=== PATIENT | female | born 1940 | race Caucasian/White ===

== ENCOUNTER 2017-02-06 15:43 | Inpatient (IN) | payer OTHER ==
[~2017-02-06] VITALS: Ht 152.4 cm; Wt 60.2 kg
[2017-02-06] MEDS ORDERED: NITROGLYCERIN 2% 1 GM OINT PKT TD STA (17:04)
[2017-02-06] MEDS ORDERED: ASPIRIN 81 MG TAB PO STA (17:04)
[2017-02-06] MEDS ORDERED: FUROSEMIDE 40 MG INJ IV STA (17:04)
[2017-02-06 17:20] LABS: WHITE BLOOD COUNT 8.1 10^3/ul (4.8-10.8)
[2017-02-06 17:21] LABS: BASOPHIL # 0.1 10^3/ul (0.0-0.1); BASOPHILS % 0.7 % (0.0-2.0); EOSINOPHILS # 0.3 10^3/ul (0.0-0.5); EOSINOPHILS % 3.3 % (0.0-7.0); HEMATOCRIT 39.5 % (37.0-47.0); HEMOGLOBIN 13.4 g/dl (12.0-16.0); LYMPHOCYTES # 3.7 10^3/ul (0.8-2.9); LYMPHOCYTES % 45.6 % (15.0-51.0); MEAN CORPUSCULAR HEMOGLOBIN 32.1 pg (29.0-33.0); MEAN CORPUSCULAR HGB CONC 33.9 g/dl (32.0-37.0); MEAN CORPUSCULAR VOLUME 94.5 fl (82.0-101.0); MEAN PLATELET VOLUME 9.9 fl (7.4-10.4); MONOCYTE # 0.6 10^3/ul (0.3-0.9); MONOCYTES % 7.7 % (0.0-11.0); NEUTROPHIL # 3.4 10^3/ul (1.6-7.5); NEUTROPHILS % 42.5 % (39.0-77.0); PLATELET COUNT 221 10^3/UL (140-415); RED BLOOD COUNT 4.18 10^6/ul (4.20-5.40); RED CELL DISTRIBUTION WIDTH 11.9 % (11.5-14.5)
[2017-02-06] MEDS ORDERED: NITROGLYCERIN (SL) 0.4 MG TAB SL PRN (17:30)
[2017-02-06 17:37] LABS: INR 0.95; PROTIME 12.7 Sec (12.2-14.2)
[2017-02-06 17:38] LABS: PARTIAL THROMBOPLASTIN TIME 27.5 Sec (25.0-35.0)
[2017-02-06 17:40] LABS: ANION GAP 17 (8-16); BLOOD UREA NITROGEN 24 mg/dl (7-20); CALCIUM 9.9 mg/dl (8.4-10.2); CARBON DIOXIDE 30 mmol/L (21-31); CHLORIDE 100 mmol/L (97-110); CREATININE 0.88 mg/dl (0.44-1.00); GLUCOSE 105 mg/dl (70-220); POTASSIUM 4.2 mmol/L (3.5-5.1); SODIUM 143 mmol/L (135-144)
[2017-02-06 17:51] LABS: TROPONIN-I < 0.012 ng/ml (0.00-0.12)
[2017-02-06] MEDS ORDERED: LISI30TA47 PO (18:09)
--- NOTE | 2017-02-06 18:09 | RADRPT ---
PROCEDURE: XR Chest. CLINICAL INDICATION: Chest pain. TECHNIQUE: Single frontal view. COMPARISON: None. FINDINGS: There is mild diffuse bilateral interstitial disease which may indicate pulmonary edema. The lungs are otherwise clear. The heart is enlarged. There is calcification in the aorta consistent with atherosclerosis. There is no pleural effusion. There is no pneumothorax. IMPRESSION: 1. Mild pulmonary edema. 2. Cardiomegaly and atherosclerosis. RPTAT: QQ .Benjamin Gregorio MD, MD Date Time Electronically viewed and signed by .Benjamin Gregorio MD, MD on 02/06/2017 18:09 .R/
[2017-02-06] MEDS ORDERED: FURO20TA3 PO (18:10)
[2017-02-06] MEDS ORDERED: LEVO25TA53 PO (18:10)
[2017-02-06] MEDS ORDERED: ASPI-664 PO (18:11)
[2017-02-06] MEDS ORDERED: ATEN50TA PO (18:11)
[2017-02-06] MEDS ORDERED: ONDANSETRON 4 MG INJ IV PRN (18:30)
[2017-02-06] MEDS ORDERED: ACETAMINOPHEN 325 MG TAB PO PRN ×2 (18:30→20:00)
--- NOTE | 2017-02-06 19:09 | ERA ---
ER Documentation Chief Complaint Date/Time DATE: 02/06/17 TIME: 19:08 Chief Complaint COUGH , SOB X 2 WEEKS , ABLE TO TALK IN FULL SENTENCES HPI Patient is a 77-year-old female with hypertension presents with shortness of breath. The patient feels tired. The patient has shortness of breath with minimal exertion. The patient has shortness of breath even with lifting her arms above her head. This is been getting worse over the past 3 weeks. The patient denies chest pain although she did have chest pain before within the last few weeks. She has swelling to her eyes bilaterally. Her doctor prescribed Lasix 40 mg daily and she has been taking for the past 2 weeks but not getting better. Upon review of old medical records this is the patient's first visit to the emergency department. ROS All systems reviewed and are negative except as per history of present illness. Medications Home Meds Reported Medications Aspirin* (Aspirin* EC) 81 Mg Tablet.dr, 81 MG PO DAILY, TAB 02/06/17 Atenolol* (Atenolol*) 50 Mg Tablet, 50 MG PO DAILY, #30 TAB 02/06/17 Levothyroxine Sodium* (Levothyroxine Sodium*) 25 Mcg Tablet, 25 MCG PO BEFORE BREAKFAST, #30 TAB 02/06/17 Furosemide* (Furosemide*) 20 Mg Tablet, 40 MG PO DAILY, #60 TAB 02/06/17 Lisinopril* (Lisinopril*) 30 Mg Tablet, 30 MG PO DAILY, #30 TAB 02/06/17 Allergies Allergies: Coded Allergies: No Known Allergy (Unverified , 02/06/17) PMhx/Soc History of Surgery: Yes (GALL BLADDER) Anesthesia Reaction: No Hx Neurological Disorder: No Hx Respiratory Disorders: No Hx Cardiac Disorders: Yes (HTN) Hx Psychiatric Problems: No Hx Miscellaneous Medical Probl: No Hx Alcohol Use: No Hx Substance Use: No Hx Tobacco Use: No Smoking Status: Never smoker FmHx Family History: No coronary disease Physical Exam Vitals Vital Signs Date Time Temp Pulse Resp B/P Pulse Ox O2 Delivery O2 Flow Rate FiO2 02/06/17 18:30 97.6 60 18 150/79 100 Nasal Cannula 2.0 02/06/17 17:00 Nasal Cannula 2.0 02/06/17 17:00 97.6 60 18 141/78 100 Nasal Cannula 2.0 02/06/17 17:00 Nasal Cannula 2 02/06/17 15:48 67.0 67 18 140/71 97 Physical Exam Const: Moderate distress secondary to shortness of breath Head: Atraumatic Eyes: Normal Conjunctiva ENT: Normal External Ears, Nose and Mouth. Neck: Full range of motion..~ No meningismus. Resp: Crackles in the bases bilaterally Cardio: Regular rate and rhythm, no murmurs Abd: Soft, non tender, non distended. Normal bowel sounds Skin: No petechiae or rashes Back: No midline or flank tenderness Ext: No cyanosis, or edema Neur: Awake and alert Psych: Normal Mood and Affect Result Diagram: 02/06/17 1700 02/06/17 1700 Results 24 hrs Laboratory Tests Test 02/06/17 17:00 White Blood Count 8.110^3/ul Red Blood Count 4.1810^6/ul Hemoglobin 13.4g/dl Hematocrit 39.5% Mean Corpuscular Volume 94.5fl Mean Corpuscular Hemoglobin 32.1pg Mean Corpuscular Hemoglobin Concent 33.9g/dl Red Cell Distribution Width 11.9% Platelet Count 39796^3/UL Mean Platelet Volume 9.9fl Neutrophils % 42.5% Lymphocytes % 45.6% Monocytes % 7.7% Eosinophils % 3.3% Basophils % 0.7% Nucleated Red Blood Cells % 0.0/100WBC Neutrophils # 3.410^3/ul Lymphocytes # 3.710^3/ul Monocytes # 0.610^3/ul Eosinophils # 0.310^3/ul Basophils # 0.110^3/ul Nucleated Red Blood Cells # 0.010^3/ul Prothrombin Time 12.7Sec Prothrombin Time Ratio 1.0 INR International Normalized Ratio 0.95 Activated Partial Thromboplast Time 27.5Sec Sodium Level 143mmol/L Potassium Level 4.2mmol/L Chloride Level 100mmol/L Carbon Dioxide Level 30mmol/L Anion Gap 17 Blood Urea Nitrogen 24mg/dl Creatinine 0.88mg/dl Glucose Level 105mg/dl Calcium Level 9.9mg/dl Troponin I < 0.012ng/ml Current Medications Medications (Trade) Dose Ordered Sig/[place] Route PRN Reason Start Time Stop Time Status Last Admin Dose Admin Aspirin (Aspirin) 162 mg ONCE STAT PO 02/06/17 17:04 02/06/17 17:18 DC 02/06/17 17:56 Nitroglycerin (Nitroglycerin 2% Oint) 1 inch ONCE STAT TD 02/06/17 17:04 02/06/17 17:18 DC 02/06/17 17:56 Nitroglycerin (Nitroglycerin (Sl Tab) 0.4 Mg) 1 tab Q5M UP TO 3 DOSES PRN SL CHEST PAIN 02/06/17 17:30 02/06/17 17:56 Furosemide (Lasix) 40 mg ONCE STAT IV 02/06/17 17:04 02/06/17 17:18 DC 02/06/17 17:55 Ondansetron HCl (Zofran Inj) 4 mg ER BRIDGE PRN IV NAUSEA AND/OR VOMITING 02/06/17 18:30 02/07/17 18:29 Acetaminophen (Tylenol Tab) 650 mg ER BRIDGE PRN PO MILD PAIN/FEVER 02/06/17 18:30 02/07/17 18:29 Procedures/MDM EKG read by me: Rate/Rhythm: Regular rate and rhythm at a normal rate Intervals: Normal Impression: No evidence of ischemia or arrhythmia Chest x-ray shows pulmonary edema per radiology. Patient is a 77-year-old female with hypertension who presents with what appears to be new onset and acute CHF exacerbation. The patient has been short of breath with minimal exertion. She has crackles in the bases and an x-ray shows pulmonary edema. The patient was given aspirin, nitroglycerin, and Lasix. The patient will be admitted to the care of Dr. Berry from the panel team for admission. Departure Diagnosis: Primary Impression: Acute exacerbation of CHF (congestive heart failure) Qualified Code: I50.9 - Acute on chronic congestive heart failure, unspecified congestive heart failure type Additional Impression: Shortness of breath Condition: PARMJIT Caldwell MD Feb 06, 2017 19:09
[2017-02-06] MEDS ORDERED: BISACODYL (EC) 5 MG TAB PO PRN (20:00)
[2017-02-06] MEDS ORDERED: DOCUSATE SODIUM 100 MG CAP PO PRN (20:00)
[2017-02-06] MEDS ORDERED: ONDANSETRON 4 MG TAB PO PRN (20:00)
[2017-02-06] MEDS ORDERED: MAGNESIUM HYDROXIDE 30ML CUP PO PRN (20:00)
[2017-02-06] MEDS ORDERED: NACL 0.9% 3 ML SYG IV SCH (20:00)
[2017-02-06] MEDS ORDERED: HYDROCODONE/APAP (5/325) TAB PO PRN (20:00)
[2017-02-06 20:27] VITALS: TEMP 97.6
[2017-02-06 20:58] VITALS: PULSE 57
[2017-02-06 21:09] VITALS: Ht 152.4 cm; Wt 60.2 kg
[2017-02-06 21:15] VITALS: BP 198/96; RESP 18
--- NOTE | 2017-02-06 22:00 | HP ---
Date/Time of Note Date/Time of Note DATE: 02/06/17 TIME: 21:59 Assessment/Plan VTE Prophylaxis VTE Prophylaxis Intervention: SCD's Assessment/Plan Chief Complaint/Hosp Course This is a 77-year-old female being admitted to the telemetry floor for: #1 shortness of breath: possible New onset CHF versus respiratory etiology. Patient denies any previous respiratory history. She has a history of hypertension that is not well controlled all the time according to her daughter is also could be secondary to possibly poorly controlled thyroid function. Will check a TSH level. X-ray does show evidence of pulmonary congestion, her BNP though is not that impressive at a level of 169. First set of troponins are negative. Will continue to trend troponins. Will obtain a 2D echocardiogram. Will provide IV Lasix diuresis right now at this time. #2 uncontrolled hypertension: We will resume home medications and add additional medications as indicated to optimize management. #3 hypothyroidism: We will check a TSH and adjust medication dosage as necessary. #4 DVT and GI prophylaxis: SCDs, Protonix Further treatment strategy will be implemented as per the clinical course Problems: HPI/ROS Admit Date/Time Admit Date/Time Feb 06, 2017 at 18:04 Hx of Present Illness Chief complaint: Shortness of breath 3 weeks This is a 77-year-old female with hypertension presents with shortness of breath 3 week. The patient has shortness of breath with minimal exertion. The patient has shortness of breath even with lifting her arms above her head. This is been getting worse over the past 3 weeks. She currently denies any chest pain though she does state that over the last few weeks she did experience it.. She has swelling to her eyes bilaterally. Her doctor prescribed Lasix 40 mg daily and she has been taking for the past 2 weeks but not getting better. Patient also reports shortness of breath while lying down. allergies: nkda meds: see sep ROS Const: As per HPI Eyes : No pain discharge or redness or change in visual acuity ENT: No pain, sore throat, congestion, congestion, dysphagia or discharge Respiratory: As per HPI Cardiovascular: As per HPI GI : no change in appetite, abdominal pain, nausea, vomiting, diarrhea, constipation, or change in the color his stool Genitourinary: No dysuria, hematuria, flank pain , discharge or CVA tenderness Musculoskeletal: No joint pain, back pain, neck pain, restricted range of motion in neck or joints Skin: No rash, bruising or hives Neuro: No headache, dizziness, syncope, seizure, focal weakness Endocrine: No polyuria, polydipsia, temperature intolerance Psych: No hallucination, depression, anxiety or suicidal ideation PMH/Family/Social Past Medical History Hypertension, hypothyroidism Past Surgical History Past Surgical Hx: cholecystectomy Family History Significant Family History: cancer (Mom stomach cancer) Social History Alcohol Use: none Smoking Status: Never smoker Drug Use: none Exam/Review of Systems Vital Signs Vitals Vital Signs Date Time Temp Pulse Resp B/P Pulse Ox O2 Delivery O2 Flow Rate FiO2 02/06/17 21:15 98.0 118 18 198/96 96 02/06/17 20:27 Nasal Cannula 2.0 Exam Exam General: Patient is a well-developed female lying in bed in no acute distress. HEENT: Atraumatic, normocephalic. The pupils are equal, round and reactive. Extraocular motor are intact, nasal cannula in place Neck: Supple with full range of motion. No rigidity or meningismus Chest: Nontender Lungs: Bilateral crackles noted diffusely, no wheezing Heart: Normal S1-S2, Regular rhythm and rate. No overt murmurs appreciated Abdomen: Soft , nontender, nondistended , bowel sounds are present. No guarding no rebound tenderness , No masses or organomegaly. No costovertebral temporal angle mass Extremities: Trace edema of the lower extremities bilaterally. Neurologic: Normal mental status, speech normal, cranial nerves II through XII are intact, motor and sensory are intact, no focal weakness Additional Comments PROCEDURE: XR Chest. CLINICAL INDICATION: Chest pain. TECHNIQUE: Single frontal view. COMPARISON: None. FINDINGS: There is mild diffuse bilateral interstitial disease which may indicate pulmonary edema. The lungs are otherwise clear. The heart is enlarged. There is calcification in the aorta consistent with atherosclerosis. There is no pleural effusion. There is no pneumothorax. IMPRESSION: 1. Mild pulmonary edema. 2. Cardiomegaly and atherosclerosis. RPTAT: QQ .Benjamin Gregorio MD, MD Date Time Electronically viewed and signed by .Benjamin Gregorio MD, MD on 02/06/2017 18:09 .R/ EKG Rate/Rhythm: Regular rate and rhythm at a normal rate Intervals: Normal Impression: No evidence of ischemia or arrhythmia As per ED physician documentation Labs Result Diagram: 02/06/17 1700 02/06/17 1700 Medications Medications Current Medications Ondansetron HCl (Zofran Tab) 4 mg Q6H PRN PO NAUSEA AND/OR VOMITING; Start at 20:00 Acetaminophen (Tylenol Tab) 650 mg Q6H PRN PO PAIN LEVEL 1-3 OR FEVER; Start at 20:00 Acetaminophen/ Hydrocodone Bitart ([place] (5/325)) 1 tab Q6H PRN PO MODERATE PAIN LEVEL 4-6; Start 02/06/17 at 20:00 Docusate Sodium (Colace) 100 mg Q12H PRN PO CONSTIPATION; Start 02/06/17 at 20: 00 Magnesium Hydroxide (Milk Of Mag) 30 ml DAILY PRN PO CONSTIPATION; Start at 20:00 Bisacodyl (Dulcolax) 5 mg DAILY PRN PO CONSTIPATION; Start 02/06/17 at 20:00 Enoxaparin Sodium (Lovenox) 40 mg DAILY SC ; Start 02/07/17 at 09:00 MAYELA OROZCO Feb 06, 2017 22:00
[2017-02-06] MEDS ORDERED: LABETALOL HCL 20MG INJ IV ONE (22:30)
[2017-02-06 22:35] VITALS: BP 167/77; PULSE 59
[2017-02-06 23:15] LABS: CREATINE KINASE 69 IU/L (23-200)
[2017-02-06 23:39] LABS: CK-MB < 0.22 ng/ml (0.0-2.4)
[2017-02-07] VITALS (12 sets, daily range): BP systolic 118–136; BP diastolic 58–65; PULSE 55–67; RESP 16–18
[2017-02-07 00:10] LABS: TROPONIN-I < 0.012 ng/ml (0.00-0.12)
[2017-02-07] MEDS: LEVOTHYROXINE 25 MCG TAB PO SCH (06:23)
[2017-02-07 07:17] LABS: BASOPHILS % 0.5 % (0.0-2.0); EOSINOPHILS # 0.4 10^3/ul (0.0-0.5); EOSINOPHILS % 4.5 % (0.0-7.0); HEMATOCRIT 38.8 % (37.0-47.0); HEMOGLOBIN 12.8 g/dl (12.0-16.0); LYMPHOCYTES # 3.6 10^3/ul (0.8-2.9); LYMPHOCYTES % 46.4 % (15.0-51.0); MEAN CORPUSCULAR HEMOGLOBIN 31.1 pg (29.0-33.0); MEAN CORPUSCULAR VOLUME 94.4 fl (82.0-101.0); MEAN PLATELET VOLUME 10.3 fl (7.4-10.4); MONOCYTE # 0.5 10^3/ul (0.3-0.9); NEUTROPHIL # 3.2 10^3/ul (1.6-7.5); NEUTROPHILS % 41.1 % (39.0-77.0); PLATELET COUNT 214 10^3/UL (140-415); RED BLOOD COUNT 4.11 10^6/ul (4.20-5.40); WHITE BLOOD COUNT 7.7 10^3/ul (4.8-10.8)
[2017-02-07 08:24] LABS: CK-MB < 0.22 ng/ml (0.0-2.4)
[2017-02-07] MEDS ORDERED: ALBUTEROL/IPRATROPIUM (NEB) 3 ML AMP HHN PRN (08:30)
[2017-02-07 08:39] LABS: CREATINE KINASE 39 IU/L (23-200); TROPONIN-I < 0.012 ng/ml (0.00-0.12)
[2017-02-07] MEDS ORDERED: ENOXAPARIN 40 MG/0.4 ML SYG SC SCH (09:00)
[2017-02-07 09:04] LABS: CHOL/HDL RATIO 5.8 RATIO
[2017-02-07 09:11] LABS: ALBUMIN/GLOBULIN RATIO 1.14; BILIRUBIN,INDIRECT 0.3 mg/dl (0-1.1); BILIRUBIN,TOTAL 0.3 mg/dl (0.2-1.3); CALCIUM 9.5 mg/dl (8.4-10.2); CREATININE 0.86 mg/dl (0.44-1.00); POTASSIUM 4.6 mmol/L (3.5-5.1); TOTAL PROTEIN 7.5 g/dl (6.1-8.1)
[2017-02-07] MEDS: ASPIRIN (EC) 81 MG TAB PO SCH (09:13)
[2017-02-07] MEDS: LISINOPRIL 10 MG TAB PO SCH (09:14)
[2017-02-07] MEDS: FUROSEMIDE 40 MG INJ IV SCH (09:14)
--- NOTE | 2017-02-07 10:04 | PN ---
Date/Time of Note Date/Time of Note DATE: 02/07/17 TIME: 09:58 Assessment/Plan VTE Prophylaxis VTE Prophylaxis Intervention: heparin Lines/Catheters IV [facility] [place] Assessment/Plan Chief Complaint/Hosp Course 1. Progressive dyspnea. New onset CHF versus respiratory etiology -Continue Lasix and bronchodilators. Follow-up with 2D echocardiogram. -CT chest for further evaluation. 2. Hypertension, poorly controlled -Continue antihypertensive and follow-up with cardiology recommendation on further adjustment. 3. Hypothyroidism -On Synthroid. Follow-up with TSH. 4. Dyslipidemia. -Start statin therapy. Of note, liver panel stable. DVT and GI prophylaxis: Heparin , Protonix Case discussed with Dr. rich. Problems: Subjective 24 Hr Interval Summary Free Text/Dictation Patient sitting up in bed, having mild shortness of breath. Tolerates ambulation and diet. Exam/Review of Systems Vital Signs Vitals Vital Signs Date Time Temp Pulse Resp B/P Pulse Ox O2 Delivery O2 Flow Rate FiO2 02/07/17 08:05 97.9 56 18 133/63 100 02/06/17 21:09 Nasal Cannula 2.0 Intake and Output 02/06/17 02/06/17 02/07/17 15:00 23:00 07:00 Intake Total 300 ml Balance 300 ml Exam General: Well developed,adequately built, not in any acute distress . HEENT: Normocephalic, Atraumatic, No laceration or hematoma; Eyes: PEERL, Conjunctiva clear, Anicteric sclera Neck: Supple without any lymphadenopathy, nontender, no JVD, no carotid bruits, trachea midline, no thyromegaly Cardiac: S1, S2 auscultated, regular rhythm and rate, no mumurs or gallop Pulmonary: Diminished breath sounds bases. Normal respiratory effort. No wheezing. GI: Abdomen normal to inspection. Soft, non tender, non- distended, no masses, no rebound tenderness or guarding. Bowel sounds active on all four quadrants Genitourinary: Deferred Extremities: No cyanosis, clubbing, or edema. Pulses [2+] bilaterally. Full ROM on all four extremities. No focal weakness appreciated. Neurologic: Alert to person, place, time, and situation. Affect appropriate, intact sensation. Skin: Clean,dry, and intact. No ecchymosis, no rashes, or lesions Results Result Diagram: 02/07/17 0603 02/07/17 0603 Results 24 hrs Laboratory Tests Test 02/06/17 17:00 02/06/17 22:43 02/07/17 06:03 White Blood Count 8.1 7.7 Red Blood Count 4.18 L 4.11 L Hemoglobin 13.4 12.8 Hematocrit 39.5 38.8 Mean Corpuscular Volume 94.5 94.4 Mean Corpuscular Hemoglobin 32.1 31.1 Mean Corpuscular Hemoglobin Concent 33.9 33.0 Red Cell Distribution Width 11.9 12.0 Platelet Count 221 214 Mean Platelet Volume 9.9 10.3 Neutrophils % 42.5 41.1 Lymphocytes % 45.6 46.4 Monocytes % 7.7 7.0 Eosinophils % 3.3 4.5 Basophils % 0.7 0.5 Nucleated Red Blood Cells % 0.0 0.0 Neutrophils # 3.4 3.2 Lymphocytes # 3.7 H 3.6 H Monocytes # 0.6 0.5 Eosinophils # 0.3 0.4 Basophils # 0.1 0.0 Nucleated Red Blood Cells # 0.0 0.0 Prothrombin Time 12.7 Prothrombin Time Ratio 1.0 INR International Normalized Ratio 0.95 Activated Partial Thromboplast Time 27.5 Sodium Level 143 145 H Potassium Level 4.2 4.6 Chloride Level 100 105 Carbon Dioxide Level 30 30 Anion Gap 17 H 15 Blood Urea Nitrogen 24 H 28 H Creatinine 0.88 0.86 Glucose Level 105 110 Calcium Level 9.9 9.5 Troponin I < 0.012 < 0.012 < 0.012 B-Type Natriuretic Peptide 169 Creatine Kinase 69 39 Creatine Kinase Index 0.3 0.6 Creatinine Kinase MB (Mass) < 0.22 < 0.22 Total Bilirubin 0.3 Direct Bilirubin 0.00 Indirect Bilirubin 0.3 Aspartate Amino Transf (AST/SGOT) 38 Alanine Aminotransferase (ALT/SGPT) 42 Alkaline Phosphatase 53 Total Protein 7.5 Albumin 4.0 Globulin 3.50 H Albumin/Globulin Ratio 1.14 Triglycerides Level 243 H Cholesterol Level 181 LDL Cholesterol, Calculated 101 HDL Cholesterol 31 L Cholesterol/HDL Ratio 5.8 Thyroid Stimulating Hormone (TSH) Pending Medications Medications Current Medications Ondansetron HCl (Zofran Tab) 4 mg Q6H PRN PO NAUSEA AND/OR VOMITING; Start at 20:00 Acetaminophen (Tylenol Tab) 650 mg Q6H PRN PO PAIN LEVEL 1-3 OR FEVER; Start at 20:00 Acetaminophen/ Hydrocodone Bitart ([place] (5/325)) 1 tab Q6H PRN PO MODERATE PAIN LEVEL 4-6; Start 02/06/17 at 20:00 Docusate Sodium (Colace) 100 mg Q12H PRN PO CONSTIPATION; Start 02/06/17 at 20: 00 Magnesium Hydroxide (Milk Of Mag) 30 ml DAILY PRN PO CONSTIPATION; Start at 20:00 Bisacodyl (Dulcolax) 5 mg DAILY PRN PO CONSTIPATION; Start 02/06/17 at 20:00 Enoxaparin Sodium (Lovenox) 40 mg DAILY SC Last administered on 02/07/17 09:13 ; Admin Dose 40 MG; Start 02/07/17 at 09:00 Aspirin (Halfprin) 81 mg DAILY PO Last administered on 02/07/17 09:13; Admin Dose 81 MG; Start 02/07/17 at 09:00 Lisinopril (Zestril) 30 mg DAILY PO Last administered on 02/07/17 09:14; Admin Dose 30 MG; Start 02/07/17 at 09:00 Furosemide (Lasix) 40 mg DAILY IV Last administered on 02/07/17 09:14; Admin Dose 40 MG; Start 02/07/17 at 09:00 EFRAIN ORELLANA NP Feb 07, 2017 10:04
--- NOTE | 2017-02-07 10:23 | CONS ---
Date/Time of Note Date/Time of Note DATE: 02/07/17 TIME: 10:18 Assessment/Plan Assessment/Plan Additional Assessment/Plan Shortness of breath Possible acute decompensated congestive heart failure Hypertension, uncontrolled History of thyroid dysfunction -Patient with mild improvement in shortness of breath with diuretics. On lung examination, patient with fine rhonchi at the lung bases, would get CT chest to help better differentiate possible primary pulmonary etiology as well. Continue diuretics as blood pressure renal function permits. Check echocardiogram. Serial troponins remain negative, ECG without any significant acute ischemic abnormalities. TSH pending Consultation Date/Type/Reason Admit Date/Time Feb 06, 2017 at 18:04 Type of Consultation: cv Reason for Consultation Shortness of breath Hx of Present Illness This is a 77-year-old female with past medical history of hypertension, thyroid dysfunction who presents with shortness of breath. Symptoms are intermittent, happens at times with rest at times worsened by activity. Also with lifting her arms, she does get worsening shortness of breath. She denies any paroxysmal nocturnal dyspnea. She denies any lower extremity swelling. She does complain of intermittent abdominal pain which feels like a bandlike around her mid abdomen. This also is exacerbated by lifting her arms. She complains of a mild cough but nonproductive. She denies any fevers or chills. 12 point review of systems was performed with all pertinent positives and negatives mentioned above and all else is negative Past Medical History Thyroid dysfunction Medical History: hypertension Past Surgical History Past Surgical Hx: cholecystectomy Social History Alcohol Use: none Smoking Status: Never smoker Drug Use: none Other Social History Lives at home with daughter Exam/Review of Systems Vital Signs Vitals Vital Signs Date Time Temp Pulse Resp B/P Pulse Ox O2 Delivery O2 Flow Rate FiO2 02/07/17 08:05 97.9 56 18 133/63 100 02/06/17 21:09 Nasal Cannula 2.0 Intake and Output 02/06/17 02/06/17 02/07/17 15:00 23:00 07:00 Intake Total 300 ml Balance 300 ml Exam No apparent distress, no dyspnea with speaking Constitutional: alert, oriented, well developed Head: normocephalic Neck: supple Respiratory: other (Coarse breath sounds bilaterally with fine rhonchi more so at the lung bases but no wheezing) Cardiovascular: other (S1-S2 heard), regular rate and rhythm Gastrointestinal: bowel sounds, non-tender, soft Extremities: edema (Trace) Results Result Diagram: 02/07/17 0603 02/07/17 0603 Results 24 hrs Laboratory Tests Test 02/06/17 17:00 02/06/17 22:43 02/07/17 06:03 White Blood Count 8.1 7.7 Red Blood Count 4.18 L 4.11 L Hemoglobin 13.4 12.8 Hematocrit 39.5 38.8 Mean Corpuscular Volume 94.5 94.4 Mean Corpuscular Hemoglobin 32.1 31.1 Mean Corpuscular Hemoglobin Concent 33.9 33.0 Red Cell Distribution Width 11.9 12.0 Platelet Count 221 214 Mean Platelet Volume 9.9 10.3 Neutrophils % 42.5 41.1 Lymphocytes % 45.6 46.4 Monocytes % 7.7 7.0 Eosinophils % 3.3 4.5 Basophils % 0.7 0.5 Nucleated Red Blood Cells % 0.0 0.0 Neutrophils # 3.4 3.2 Lymphocytes # 3.7 H 3.6 H Monocytes # 0.6 0.5 Eosinophils # 0.3 0.4 Basophils # 0.1 0.0 Nucleated Red Blood Cells # 0.0 0.0 Prothrombin Time 12.7 Prothrombin Time Ratio 1.0 INR International Normalized Ratio 0.95 Activated Partial Thromboplast Time 27.5 Sodium Level 143 145 H Potassium Level 4.2 4.6 Chloride Level 100 105 Carbon Dioxide Level 30 30 Anion Gap 17 H 15 Blood Urea Nitrogen 24 H 28 H Creatinine 0.88 0.86 Glucose Level 105 110 Calcium Level 9.9 9.5 Troponin I < 0.012 < 0.012 < 0.012 B-Type Natriuretic Peptide 169 Creatine Kinase 69 39 Creatine Kinase Index 0.3 0.6 Creatinine Kinase MB (Mass) < 0.22 < 0.22 Total Bilirubin 0.3 Direct Bilirubin 0.00 Indirect Bilirubin 0.3 Aspartate Amino Transf (AST/SGOT) 38 Alanine Aminotransferase (ALT/SGPT) 42 Alkaline Phosphatase 53 Total Protein 7.5 Albumin 4.0 Globulin 3.50 H Albumin/Globulin Ratio 1.14 Triglycerides Level 243 H Cholesterol Level 181 LDL Cholesterol, Calculated 101 HDL Cholesterol 31 L Cholesterol/HDL Ratio 5.8 Thyroid Stimulating Hormone (TSH) Pending Medications Medications Current Medications Ondansetron HCl (Zofran Tab) 4 mg Q6H PRN PO NAUSEA AND/OR VOMITING; Start at 20:00 Acetaminophen (Tylenol Tab) 650 mg Q6H PRN PO PAIN LEVEL 1-3 OR FEVER; Start at 20:00 Acetaminophen/ Hydrocodone Bitart ([place] (5/325)) 1 tab Q6H PRN PO MODERATE PAIN LEVEL 4-6; Start 02/06/17 at 20:00 Docusate Sodium (Colace) 100 mg Q12H PRN PO CONSTIPATION; Start 02/06/17 at 20: 00 Magnesium Hydroxide (Milk Of Mag) 30 ml DAILY PRN PO CONSTIPATION; Start at 20:00 Bisacodyl (Dulcolax) 5 mg DAILY PRN PO CONSTIPATION; Start 02/06/17 at 20:00 Aspirin (Halfprin) 81 mg DAILY PO Last administered on 02/07/17 09:13; Admin Dose 81 MG; Start 02/07/17 at 09:00 Lisinopril (Zestril) 30 mg DAILY PO Last administered on 02/07/17 09:14; Admin Dose 30 MG; Start 02/07/17 at 09:00 Furosemide (Lasix) 40 mg DAILY IV Last administered on 02/07/17 09:14; Admin Dose 40 MG; Start 02/07/17 at 09:00 Atorvastatin Calcium (Lipitor) 10 mg HS PO ; Start 02/07/17 at 21:00 Heparin Sodium (Porcine) (Heparin (5000 Units/0.5 ml)) 5,000 unit BID SC ; Start 02/07/17 at 21:00 Procedures Procedures ECG demonstrates sinus rhythm at 60 bpm, QRS 80 ms, nonspecific ST abnormalities Aj Deng DO Feb 07, 2017 10:23
--- NOTE | 2017-02-07 11:16 | RADRPT ---
Echocardiogram Report Patient Name: ANNA URBINA Gender: Female Date: 1940 Study Date: 07-Feb-2017 Loan Servicing Representative: Anaya Lainez [facility] Location: 5553 Ref. Physician: WASHINGTON HART Quality: Good Procedures: Transthoracic echocardiogram with complete 2D, M-Mode, and doppler examination. Indications: Shortness of breath. 2D/M Mode Doppler Measurement Value Normal Ranges Measurement Value Normal Ranges LVIDd 2D 3.1 3.5 - 5.6 cm AV Peak Alonzo 1.1 m/sec LVIDs 2D 1.6 2.1 - 4.1 cm AV Peak PG 5.0 mmHg FS 2D 46.4 % LVOT Peak Alonzo 0.8 m/sec LVPWd 2D 1.0 0.6 - 1.1 cm LVOT Peak PG 2.0 mmHg IVSd 2D 1.0 0.6 - 1.1 cm MV E Peak Alonzo 0.6 m/sec IVS/LVPW 2D 1.0 MV A Peak Alonzo 0.7 m/sec AoR Diam 2D 2.8 2.0 - 3.7 cm MV E/A 0.9 LA/Ao 2D 1 0 - 1 MV Decel Time 292 msec EDV 2D 28.7 cm3 MV E/A 0.9 ESV 2D 4.4 cm3 TR Peak Alonzo 2.0 m/sec LA Dimen 2D 2.4 2.3 - 4.0 cm TR Peak PG 17.0 mmHg RVSP 20.0 mmHg Findings Left Ventricle: Normal left ventricular systolic function. Normal left ventricular cavity size. Normal left ventricular wall thickness. Ejection fraction is visually estimated at 65 %. Tissue Doppler/Mitral Doppler indices are consistent with impaired relaxation (Stage I diastolic dysfunction). Right Ventricle: Normal right ventricular size. Normal right ventricular systolic function. Left Atrium: The left atrium is normal in size. Right Atrium: The right atrium is normal in size. Mitral Valve: Mitral valve leaflets appear mildly thickened. Mild mitral annular calcification. Trace mitral regurgitation. Aortic Valve: Normal appearance of the aortic valve. No significant aortic stenosis or insufficiency. Tricuspid Valve: Normal appearance of the tricuspid valve. Estimated peak PA systolic pressure 20 mmHg. There is trace tricuspid regurgitation. Pulmonic Valve: Pulmonic valve not well visualized. Pericardium: Normal pericardium with no significant pericardial effusion. Aorta: Normal aortic root. IVC: Normal size and normal respiratory collapse consistent with normal right atrial pressure. Conclusions 1.Normal left ventricular systolic function. Normal left ventricular cavity size. Normal left ventricular wall thickness. Ejection fraction is visually estimated at 65 %. Tissue Doppler/Mitral Doppler indices are consistent with impaired relaxation (Stage I diastolic dysfunction). 2.Normal right ventricular size. Normal right ventricular systolic function. 3.The left atrium is normal in size. 4.The right atrium is normal in size. 5.No significant valvular stenosis or regurgitation seen. 6.Normal pericardium with no significant pericardial effusion. Electronically Signed By: Aj Deng 07-Feb-2017 11:15:18 -0700 Patient Name: ANNA URBINA Study Date: 07-Feb-2017 [id number]
[2017-02-07] MEDS: ATORVASTATIN 10 MG TAB PO SCH (21:40)
--- NOTE | 2017-02-07 21:46 | RADRPT ---
PROCEDURE: CT Chest without contrast. CLINICAL INDICATION: Shortness of breath. TECHNIQUE: Multiple contiguous helical CT images of the chest were obtained without the administra tion of intravenous contrast. Coronal and sagittal reformatted images were obtained from the source images. CTDIvol (mGy): 7.89; Total Exam DLP (mGy-cm): 274.34. One or more of the following dose reduction techniques were utilized: - Automated exposure control. - Adjustment of the mA and/or kV according to patient size. - Use of iterative reconstruction technique. COMPARISON: Chest x-ray 02/06/2017. FINDINGS: Limited imaging of the lower neck demonstrates multiple cystic nodules within the thyroid gland. The heart is within upper limits of normal in size to mildly enlarged. There is no pericardial effu gabriel. There is no mediastinal, hilar or axillary lymphadenopathy. The thoracic aorta is normal in caliber. Thoracic aortic and coronary artery calcifications are present. The pulmonary arteries are not enlarged. Low lung volumes are observed. Subpleural interstitial thickening with scattered subpleural honeyco mbing / cystic change is observed bilaterally and in a symmetric distribution. Traction bronchiectas is and bronchiolectasis are also present. Background pulmonary parenchyma is fairly homogeneous. I maging findings suggest sequelae of pulmonary fibrosis. There is no pulmonary consolidation or pleu ral effusion. There is a 3 ml nodule within the right lung apex (4-18). Limited imaging of the upper abdomen demonstrates a mildly nodular contour of the liver which may be a result of hepatic parenchymal disease. Degenerative changes of the thoracic spine are present. Chest wall soft tissues are unremarkable. IMPRESSION: Low lung volumes with subpleural interstitial thickening and honeycombing / cystic change suggesting the presence of pulmonary fibrosis. No evidence of mass or lymphadenopathy of the chest. Tiny right upper lobe pulmonary nodule. Follow-up may be obtained in 12 months. Mildly nodular contour of the liver which may be a result of hepatic parenchymal disease. Correlate with appropriate clinical data. Thoracic aortic atherosclerosis. RPTAT: HLST .Josefina Hardy MD, Date Time Electronically viewed and signed by .Josefina Hardy MD, on 02/07/2017 21:46 .T/
[2017-02-07] MEDS: HEPARIN 5,000 UNIT/0.5 ML VIAL SC SCH (21:53)
[2017-02-08] VITALS (13 sets, daily range): BP systolic 123–146; BP diastolic 60–75; PULSE 63–75; RESP 16–19
[2017-02-08] MEDS: LEVOTHYROXINE 25 MCG TAB PO SCH (05:36)
[2017-02-08 07:58] LABS: CREATININE 0.84 mg/dl (0.44-1.00); MAGNESIUM 2.2 mg/dl (1.7-2.5); POTASSIUM 4.4 mmol/L (3.5-5.1)
[2017-02-08] MEDS: LISINOPRIL 10 MG TAB PO SCH (09:36)
[2017-02-08] MEDS: ASPIRIN (EC) 81 MG TAB PO SCH (09:37)
[2017-02-08] MEDS: HEPARIN 5,000 UNIT/0.5 ML VIAL SC SCH ×2 (09:37→21:42)
[2017-02-08] MEDS: FUROSEMIDE 40 MG INJ IV SCH (09:37)
--- NOTE | 2017-02-08 11:01 | PN ---
Date/Time of Note Date/Time of Note DATE: 02/08/17 TIME: 10:59 Assessment/Plan VTE Prophylaxis VTE Prophylaxis Intervention: SCD's Lines/Catheters IV Catheter Type (from Nrsg): Saline Lock Assessment/Plan Assessment/Plan Shortness of breath Possible acute decompensated congestive heart failure Hypertension, uncontrolled History of thyroid dysfunction -Patient with mild improvement in shortness of breath with diuretics. Continue diuretics as blood pressure renal function permits. Check echocardiogram. Serial troponins remain negative, ECG without any significant acute ischemic abnormalities. -on Iv lasix - will increase dose today Subjective 24 Hr Interval Summary Free Text/Dictation The patient with no change Exam/Review of Systems Vital Signs Vitals Vital Signs Date Time Temp Pulse Resp B/P Pulse Ox O2 Delivery O2 Flow Rate FiO2 02/08/17 08:30 98.1 65 18 123/69 95 02/08/17 07:59 Nasal Cannula 2.0 Intake and Output 02/07/17 02/07/17 02/08/17 15:00 23:00 07:00 Intake Total 550 ml 900 ml Balance 550 ml 900 ml Results Result Diagram: 02/07/17 0603 02/08/17 0656 Results 24 hrs Laboratory Tests Test 02/08/17 06:56 Sodium Level 137 Potassium Level 4.4 Chloride Level 97 Carbon Dioxide Level 25 Anion Gap 19 H Blood Urea Nitrogen 32 H Creatinine 0.84 Glucose Level 113 Calcium Level 9.0 Magnesium Level 2.2 Medications Medications Current Medications Ondansetron HCl (Zofran Tab) 4 mg Q6H PRN PO NAUSEA AND/OR VOMITING; Start at 20:00 Acetaminophen (Tylenol Tab) 650 mg Q6H PRN PO PAIN LEVEL 1-3 OR FEVER; Start at 20:00 Acetaminophen/ Hydrocodone Bitart ([place] (5/325)) 1 tab Q6H PRN PO MODERATE PAIN LEVEL 4-6; Start 02/06/17 at 20:00 Docusate Sodium (Colace) 100 mg Q12H PRN PO CONSTIPATION; Start 02/06/17 at 20: 00 Magnesium Hydroxide (Milk Of Mag) 30 ml DAILY PRN PO CONSTIPATION; Start at 20:00 Bisacodyl (Dulcolax) 5 mg DAILY PRN PO CONSTIPATION; Start 02/06/17 at 20:00 Aspirin (Halfprin) 81 mg DAILY PO Last administered on 02/08/17 09:37; Admin Dose 81 MG; Start 02/07/17 at 09:00 Lisinopril (Zestril) 30 mg DAILY PO Last administered on 02/08/17 09:36; Admin Dose 30 MG; Start 02/07/17 at 09:00 Furosemide (Lasix) 40 mg DAILY IV Last administered on 02/08/17 09:37; Admin Dose 40 MG; Start 02/07/17 at 09:00 Atorvastatin Calcium (Lipitor) 10 mg HS PO Last administered on 02/07/17 21:40 ; Admin Dose 10 MG; Start 02/07/17 at 21:00 Heparin Sodium (Porcine) (Heparin (5000 Units/0.5 ml)) 5,000 unit BID SC Last administered on 02/08/17 09:37; Admin Dose 5,000 UNIT; Start 02/07/17 at 21:00 YOUSUF GIL MD Feb 08, 2017 11:01
[2017-02-08] MEDS: ATORVASTATIN 10 MG TAB PO SCH (21:40)
--- NOTE | 2017-02-08 23:31 | PN ---
Date/Time of Note Date/Time of Note DATE: 02/08/17 TIME: 23:30 Assessment/Plan VTE Prophylaxis VTE Prophylaxis Intervention: heparin Lines/Catheters IV Catheter Type (from Nrsg): Saline Lock Assessment/Plan Assessment/Plan 1. Progressive dyspnea. New onset CHF versus respiratory etiology -Continue Lasix and bronchodilators. Follow-up with 2D echocardiogram. -CT chest for further evaluation. 2. Hypertension, poorly controlled -Continue antihypertensive and follow-up with cardiology recommendation on further adjustment. 3. Hypothyroidism -On Synthroid. Follow-up with TSH. 4. Dyslipidemia. -Start statin therapy. Of note, liver panel stable. DVT and GI prophylaxis: Heparin , Protonix Subjective 24 Hr Interval Summary Free Text/Dictation no acute overnight events Exam/Review of Systems Vital Signs Vitals Vital Signs Date Time Temp Pulse Resp B/P Pulse Ox O2 Delivery O2 Flow Rate FiO2 02/08/17 20:13 75 02/08/17 19:46 97.7 19 146/67 98 02/08/17 12:00 Nasal Cannula 2.0 Intake and Output 02/07/17 02/07/17 02/08/17 15:00 23:00 07:00 Intake Total 550 ml 900 ml Balance 550 ml 900 ml Exam Constitutional: alert, oriented, well developed Head: atraumatic, normocephalic Eyes: EOMI, PERRL Respiratory: clear to auscultation, normal air movement Gastrointestinal: non-tender, soft Extremities: normal pulses Results Result Diagram: 02/07/17 0603 02/08/17 0656 Results 24 hrs Laboratory Tests Test 02/08/17 06:56 Sodium Level 137 Potassium Level 4.4 Chloride Level 97 Carbon Dioxide Level 25 Anion Gap 19 H Blood Urea Nitrogen 32 H Creatinine 0.84 Glucose Level 113 Calcium Level 9.0 Magnesium Level 2.2 Medications Medications Current Medications Ondansetron HCl (Zofran Tab) 4 mg Q6H PRN PO NAUSEA AND/OR VOMITING; Start at 20:00 Acetaminophen (Tylenol Tab) 650 mg Q6H PRN PO PAIN LEVEL 1-3 OR FEVER; Start at 20:00 Acetaminophen/ Hydrocodone Bitart ([place] (5/325)) 1 tab Q6H PRN PO MODERATE PAIN LEVEL 4-6; Start 02/06/17 at 20:00 Docusate Sodium (Colace) 100 mg Q12H PRN PO CONSTIPATION; Start 02/06/17 at 20: 00 Magnesium Hydroxide (Milk Of Mag) 30 ml DAILY PRN PO CONSTIPATION; Start at 20:00 Bisacodyl (Dulcolax) 5 mg DAILY PRN PO CONSTIPATION; Start 02/06/17 at 20:00 Aspirin (Halfprin) 81 mg DAILY PO Last administered on 02/08/17 09:37; Admin Dose 81 MG; Start 02/07/17 at 09:00 Lisinopril (Zestril) 30 mg DAILY PO Last administered on 02/08/17 09:36; Admin Dose 30 MG; Start 02/07/17 at 09:00 Atorvastatin Calcium (Lipitor) 10 mg HS PO Last administered on 02/08/17 21:40 ; Admin Dose 10 MG; Start 02/07/17 at 21:00 Heparin Sodium (Porcine) (Heparin (5000 Units/0.5 ml)) 5,000 unit BID SC Last administered on 02/08/17 21:42; Admin Dose 5,000 UNIT; Start 02/07/17 at 21:00 Furosemide (Lasix) 40 mg DAILY IV ; Start 02/09/17 at 09:00 QIAN HERNANDEZ MD Feb 08, 2017 23:31
[2017-02-09] VITALS (7 sets, daily range): BP systolic 131–139; BP diastolic 62–73; PULSE 61–100; RESP 16–19
[2017-02-09] MEDS: LEVOTHYROXINE 25 MCG TAB PO SCH (06:20)
[2017-02-09 08:15] LABS: BASOPHILS % 0.6 % (0.0-2.0); EOSINOPHILS # 0.3 10^3/ul (0.0-0.5); EOSINOPHILS % 4.8 % (0.0-7.0); HEMATOCRIT 39.4 % (37.0-47.0); HEMOGLOBIN 12.9 g/dl (12.0-16.0); LYMPHOCYTES % 45.2 % (15.0-51.0); MEAN CORPUSCULAR HEMOGLOBIN 30.9 pg (29.0-33.0); MEAN CORPUSCULAR HGB CONC 32.7 g/dl (32.0-37.0); MEAN CORPUSCULAR VOLUME 94.3 fl (82.0-101.0); MEAN PLATELET VOLUME 10.1 fl (7.4-10.4); MONOCYTE # 0.5 10^3/ul (0.3-0.9); NEUTROPHIL # 2.8 10^3/ul (1.6-7.5); NEUTROPHILS % 42.1 % (39.0-77.0); PLATELET COUNT 192 10^3/UL (140-415); RED BLOOD COUNT 4.18 10^6/ul (4.20-5.40); RED CELL DISTRIBUTION WIDTH 11.9 % (11.5-14.5); WHITE BLOOD COUNT 6.6 10^3/ul (4.8-10.8)
[2017-02-09 08:50] LABS: ALBUMIN 3.9 g/dl (3.3-4.9); ALBUMIN/GLOBULIN RATIO 1.08; BILIRUBIN,INDIRECT 0.4 mg/dl (0-1.1); BILIRUBIN,TOTAL 0.4 mg/dl (0.2-1.3); CALCIUM 9.8 mg/dl (8.4-10.2); CREATININE 0.79 mg/dl (0.44-1.00); POTASSIUM 4.5 mmol/L (3.5-5.1); TOTAL PROTEIN 7.5 g/dl (6.1-8.1)
[2017-02-09] MEDS ORDERED: FUROSEMIDE 40 MG INJ IV SCH ×2 (09:00)
[2017-02-09] MEDS: ASPIRIN (EC) 81 MG TAB PO SCH (09:29)
[2017-02-09] MEDS: LISINOPRIL 10 MG TAB PO SCH (09:30)
[2017-02-09] MEDS: HEPARIN 5,000 UNIT/0.5 ML VIAL SC SCH (09:45)
[2017-02-09] MEDS ORDERED: FURO20TA3 PO ×2 (10:30)
--- NOTE | 2017-02-09 10:33 | PDOCDIS ---
Discharge Instructions CONDITION Patient Condition: Stable HOME CARE INSTRUCTIONS: Special Diet: low fat, low cholesterol, low carbohydrate ACTIVITY: Activity Restrictions: Slowly Increase Activity FOLLOW UP/APPOINTMENTS Follow-up Plan Follow-up with your primary care doctor. OTHER ORDERS: Other Orders: Call 911 and go to the nearest emergency department if he develops any chest pain, shortness of breath, fever, chills, lightheadedness or bleeding QIAN HERNANDEZ MD Feb 09, 2017 10:33
--- NOTE | 2017-02-09 13:08 | CONS ---
Date/Time of Note Date/Time of Note DATE: 02/09/17 TIME: 13:06 Assessment/Plan Assessment/Plan Additional Assessment/Plan Shortness of breath Mild acute decompensated diastolic congestive heart failure Likely pulmonary fibrosis Hypertension, uncontrolled History of thyroid dysfunction Preserved ejection fraction -CT chest done with evidence of honeycombing and possible pulmonary fibrosis. Shortness of breath is likely multifactorial including from a primary pulmonary etiology as well as mild decompensated congestive heart failure. Would continue maintenance Lasix as blood pressure renal function permits. Pulmonary evaluation. Consultation Date/Type/Reason Admit Date/Time Feb 06, 2017 at 18:04 Initial Consult Date Type of Consultation: cv 24 HR Interval Summary Free Text/Dictation Shortness of breath continues to improve, denies chest pain or palpitations Exam/Review of Systems Vital Signs Vitals Vital Signs Date Time Temp Pulse Resp B/P Pulse Ox O2 Delivery O2 Flow Rate FiO2 02/09/17 12:23 100 02/09/17 12:03 97.6 16 131/67 97 02/09/17 08:00 Nasal Cannula 2.0 Intake and Output 02/08/17 02/08/17 02/09/17 15:00 23:00 07:00 Intake Total 500 ml Balance 500 ml Exam No apparent distress Constitutional: alert, oriented Head: normocephalic Respiratory: other (Coarse breath sounds with fine rhonchi at bilateral bases) Cardiovascular: other (S1-S2 heard), regular rate and rhythm Gastrointestinal: bowel sounds, non-tender, soft Extremities: edema (Trace) Results Result Diagram: 02/09/17 0742 02/09/17 0742 Results 24 hrs Laboratory Tests Test 02/09/17 07:42 White Blood Count 6.6 Red Blood Count 4.18 L Hemoglobin 12.9 Hematocrit 39.4 Mean Corpuscular Volume 94.3 Mean Corpuscular Hemoglobin 30.9 Mean Corpuscular Hemoglobin Concent 32.7 Red Cell Distribution Width 11.9 Platelet Count 192 Mean Platelet Volume 10.1 Neutrophils % 42.1 Lymphocytes % 45.2 Monocytes % 7.0 Eosinophils % 4.8 Basophils % 0.6 Nucleated Red Blood Cells % 0.0 Neutrophils # 2.8 Lymphocytes # 3.0 H Monocytes # 0.5 Eosinophils # 0.3 Basophils # 0.0 Nucleated Red Blood Cells # 0.0 Sodium Level 143 Potassium Level 4.5 Chloride Level 98 Carbon Dioxide Level 31 Anion Gap 19 H Blood Urea Nitrogen 30 H Creatinine 0.79 Glucose Level 118 Calcium Level 9.8 Total Bilirubin 0.4 Direct Bilirubin 0.00 Indirect Bilirubin 0.4 Aspartate Amino Transf (AST/SGOT) 35 Alanine Aminotransferase (ALT/SGPT) 42 Alkaline Phosphatase 56 Total Protein 7.5 Albumin 3.9 Globulin 3.60 H Albumin/Globulin Ratio 1.08 Aj Deng DO Feb 09, 2017 13:08
[2017-02-10 14:55] LABS: THYROID STIMULATING HORMONE 8.35 MIU/L (0.465-4.680)
== END 2017-02-09 12:33 | disposition home or self-care (01) | DRG 293 ==
LOC: FTE 15:43 → MS4 18:04
PROVIDERS: ADMIT Internal Medicine; ATTEND Internal Medicine
DX: I50.33 Acute on chronic diastolic (congestive) heart failure (principal); I10 Essential (primary) hypertension; E03.9 Hypothyroidism, unspecified; E78.5 Hyperlipidemia, unspecified
CPT/HCPCS: 36415; 71010; 71250; 80048; 80053; 80061; 82550; 82553; 83036; 83735; 83880; 84443; 84484; 85025; 85610; 85730; 93005; 93306; 96374; J1644; J1650; J1940

== ENCOUNTER 2017-03-25 05:28 | Day surgery (SDC) | payer OTHER ==
--- NOTE | 2017-03-24 13:41 | PREOPHP ---
DATE OF ADMISSION: 03/25/2017 HISTORY OF PRESENT ILLNESS: This 77-year-old patient is admitted for elective cataract surgery of the right eye. The patient has had decreased vision in both eyes, progressive over the past year's time. The patient previously underwent pterygium surgery in the left eye 11 years ago. The patient's systemic history is positive for hypertension, hypothyroid. CURRENT MEDICATIONS: Lasix, levothyroxine, lisinopril, aspirin (discontinued 1 week prior to surgery). ALLERGIES: NO KNOWN ALLERGIES. 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 Both eyes have significant nuclear sclerotic cataract. Applanation tonometry is 18 mmHg. Examination of the retina is noted to be within normal limits. DIAGNOSIS: Cataract, right eye. PLAN: Cataract extraction with lens implant, right eye. The risks and alternatives to the surgery have been discussed with the patient, as well as the hope for improvement of visual acuity leading to greater ability to perform activities of daily living. The patient understands this and agrees to proceed with surgery. Dictated By: Jake Patton MD /lamin/satinder /Document#: [id number]
[~2017-03-25] VITALS: Ht 157.5 cm; Wt 55.8 kg
[2017-03-25] VITALS (10 sets, daily range): BP systolic 140–194; BP diastolic 68–88; PULSE 77–97; RESP 10–18; Ht 157.5 cm; Wt 55.8 kg
[~2017-03-25 05:28] MED LIST: ASPI-664 PO; ATEN50TA PO; FURO20TA3 PO; LEVO25TA53 PO; LISI30TA47 PO
[2017-03-25] MEDS ORDERED: CEFAZOLIN 1 GM INJ ONE (06:28)
[2017-03-25] MEDS ORDERED: EPINEPHrine 1 MG INJ ONE (06:28)
[2017-03-25] MEDS ORDERED: LIDOCAINE 4% (MPF) 5 ML INJ ONE (06:28)
[2017-03-25] MEDS ORDERED: GENTAMICIN 80 MG INJ ONE (06:28)
[2017-03-25] MEDS ORDERED: DEXAMETHASONE 4 MG/ML 1 ML INJ ONE (06:28)
[2017-03-25] MEDS ORDERED: CARBACHOL 0.01% 1.5 ML OPH INJ ONE (06:28)
[2017-03-25] MEDS ORDERED: DICLOFENAC 0.1% 2.5 ML OPH OPER SCH (06:30)
[2017-03-25] MEDS ORDERED: TROPICAMIDE 1% 3ML OPH OPER SCH (06:30)
[2017-03-25] MEDS ORDERED: CYCLOPENTOLATE/PHENYLEPH 2 ML OPH OPER SCH (06:30)
[2017-03-25] MEDS ORDERED: SOD CHLORIDE 0.9% 1,000 ML IV SCH (06:30)
[2017-03-25] MEDS ORDERED: CIPROFLOXACIN 0.3% 2.5 ML OPH OPER SCH (06:30)
[2017-03-25] MEDS ORDERED: CARBACHOL 0.01% 1.5 ML OPH INJ IO ONE (07:00)
[2017-03-25] MEDS ORDERED: DEXAMETHASONE 4 MG/ML 1 ML INJ INJ ONE (07:00)
[2017-03-25] MEDS ORDERED: CEFAZOLIN 1 GM INJ INJ ONE (07:00)
[2017-03-25] MEDS ORDERED: FENTAnyl 50 MCG/ML VIAL ONE (07:37)
[2017-03-25] MEDS ORDERED: MIDAZOLAM 1 MG/ML 2 ML INJ ONE (07:37)
--- NOTE | 2017-03-25 08:14 | SIPON ---
Date/Time of Note Date/Time of Note DATE: 03/25/17 TIME: 08:13 Operative Report Preoperative Diagnosis cataract od Postoperative Diagnosis same Operation/Procedure Performed cataract extraction od Surgeon: GIACOMO BYRD MD Anesthesia Type: MAC Estimated Blood Loss: none Transfusion Required: no Specimen: none Grafts/Implants posterior chamber lens implant Complications: no GIACOMO BYRD MD Mar 25, 2017 08:14
[2017-03-25] MEDS ORDERED: DIPHENHYDRAMINE 50 MG INJ IV PRN (08:30)
[2017-03-25] MEDS ORDERED: ONDANSETRON 4 MG INJ IV PRN (08:30)
[2017-03-25] MEDS ORDERED: FENTAnyl 50 MCG/ML VIAL IV PRN (08:30)
[2017-03-25] MEDS ORDERED: hydrALAzine 20 MG INJ IV PRN (08:30)
[2017-03-25] MEDS ORDERED: LABETALOL HCL 20MG INJ IV PRN (08:30)
--- NOTE | 2017-03-25 09:15 | OPR ---
DATE OF OPERATION: 03/25/2017 PREOPERATIVE DIAGNOSIS: Cataract, right eye. POSTOPERATIVE DIAGNOSIS: Cataract, right eye. SURGEON: Jake Patton MD CHEMICAL MANAGER: ANESTHESIA: Local standby. ANESTHESIOLOGIST: Dr. St. OPERATION: Phacoemulsification with posterior chamber intraocular lens implant, right eye. PROCEDURE: The patient was brought to the operating room and placed on the table with an IV in place and the patient attached to an potline monitor. Oxygen was given via face mask. After some intravenous sedation was administered, local anesthesia was given using Xylocaine 2% with epinephrine, mixed with Marcaine 0.5%. This was given in a lid block and retrobulbar injection. The patient was then prepped and draped in the usual sterile manner. A wire lid speculum was inserted between the lids of the right eye. A Superblade was used to enter the anterior chamber at the corneoscleral limbus at the 10:30 o'clock position. A separate incision was made using a 3.0-mm keratome which entered the corneoscleral junction at the 12 o'clock position. Through this 3- mm opening, an irrigating cystotome was introduced into the anterior chamber. The chamber was filled with Viscoat and an anterior capsulotomy was performed. Balanced salt solution was then used for hydrodissection of the lens. A phacoemulsification handpiece was then brought into the field and introduced into the anterior chamber. The lens nucleus was emulsified using a deep groove and cracking the nucleus into quadrants. Following this, each quadrant was aspirated and emulsified at the pupillary margin. After this was completed, the irrigation/aspiration handpiece was brought to the field, introduced into the posterior chamber, and the lens cortical material was removed. When this was completed, ProVisc was injected into the anterior and posterior chambers. The 3-mm opening had its internal lips enlarged, and then the posterior chamber intraocular lens measuring 21.0 diopters ([employer] model LI61A0) was then injected into the posterior chamber using the lens injector system. After the leading haptic was introduced into the capsular bag and the lens optic was present in the center of the eye, the injector was removed and the trailing haptic was grasped with non-toothed forceps and introduced into the capsular fold superiorly. A Sinskey hook was then used to rotate the intraocular lens so that the lips were oriented in the horizontal meridian. One 10-0 nylon suture was placed across the wound. Prior to tying, the irrigation/aspiration handpiece was reintroduced into the anterior chamber to remove the ProVisc. Miochol was instilled to constrict the pupil, and then the 10-0 nylon suture was tied. The ends were cut short and then the knot was buried. Then, 0.5 mL of dexamethasone and 0.5 mL of Ancef were injected into the sub-Tenon space in the inferior fornix. Ciloxan drops were then placed on the surface of the eye. The speculum was removed and a patch was applied. The patient then left the operating room in satisfactory condition. Dictated By: Jake Patton MD /lamin/juan /Document#: [id number]
== END 2017-03-25 09:25 | disposition home or self-care (01) ==
LOC: SDS 05:28
PROVIDERS: ATTEND Ophthalmology
DX: H25.11 Age-related nuclear cataract, right eye (principal); I10 Essential (primary) hypertension; J44.9 Chronic obstructive pulmonary disease, unspecified; I50.9 Heart failure, unspecified; E03.9 Hypothyroidism, unspecified
CPT/HCPCS: 66984; J0171; J0690; J1100; J1580; J2250; J2405; J3010; V2632; Z7512; Z7610

== ENCOUNTER 2017-05-27 06:20 | Day surgery (SDC) | payer OTHER ==
[~2017-05-27] VITALS: Ht 152.4 cm; Wt 59.1 kg
[2017-05-27] VITALS (8 sets, daily range): BP systolic 127–163; BP diastolic 60–83; PULSE 72–80; RESP 17–32; Ht 152.4 cm; Wt 59.1 kg
[~2017-05-27 06:20] MED LIST changes: -ATEN50TA PO; +CARBACHOL 0.01% 1.5 ML OPH INJ ONE; +CEFAZOLIN 1 GM INJ ONE; +DEXAMETHASONE 4 MG/ML 1 ML INJ ONE; +EPINEPHrine 1 MG INJ ONE; +GENTAMICIN 80 MG INJ ONE; +LIDOCAINE 4% (MPF) 5 ML INJ ONE
[2017-05-27] MEDS ORDERED: SOD CHLORIDE 0.9% 1,000 ML IV SCH (06:30)
[2017-05-27] MEDS ORDERED: TROPICAMIDE 1% 3 ML OPH OPER SCH (06:30)
[2017-05-27] MEDS ORDERED: DICLOFENAC 0.1% 2.5 ML OPH OPER SCH (06:30)
[2017-05-27] MEDS ORDERED: CYCLOPENTOLATE/PHENYLEPH 2 ML OPH OPER SCH (06:30)
[2017-05-27] MEDS ORDERED: MOXIFLOXACIN 0.5% 3 ML OPH OPER SCH (06:30)
[2017-05-27] MEDS ORDERED: METO-429 PO (07:10)
[2017-05-27] MEDS ORDERED: DEXAMETHASONE 4 MG/ML 1 ML INJ INJ ONE (08:09)
[2017-05-27] MEDS ORDERED: CARBACHOL 0.01% 1.5 ML OPH INJ IO ONE (08:09)
[2017-05-27] MEDS ORDERED: CEFAZOLIN 1 GM INJ INJ ONE (08:09)
[2017-05-27] MEDS ORDERED: PROPOFOL 20 ML ONE (08:11)
[2017-05-27] MEDS ORDERED: LABETALOL HCL 20MG INJ IV PRN (08:30)
[2017-05-27] MEDS ORDERED: ONDANSETRON 4 MG INJ IV PRN (08:30)
[2017-05-27] MEDS ORDERED: hydrALAzine 20 MG INJ IV PRN (08:30)
[2017-05-27] MEDS ORDERED: METOCLOPRAMIDE 10 MG INJ IV PRN (08:30)
[2017-05-27] MEDS ORDERED: EPHEDrine SULFATE 50 MG/5 ML SYG IV PRN (08:30)
[2017-05-27] MEDS ORDERED: OXYCODONE/ACETAMINOPHEN (5/325) TAB PO PRN ×2 (08:30)
[2017-05-27] MEDS ORDERED: FENTAnyl 50 MCG/ML VIAL IV PRN ×3 (08:30)
[2017-05-27] MEDS ORDERED: DIPHENHYDRAMINE 50 MG INJ IV PRN (08:30)
[2017-05-27] MEDS ORDERED: MIDAZOLAM 1 MG/ML 2 ML INJ IV PRN (08:30)
[2017-05-27] MEDS ORDERED: MEPERIDINE 25 MG INJ IV PRN (08:30)
[2017-05-27] MEDS ORDERED: LABETALOL HCL 20MG INJ ONE (09:08)
--- NOTE | 2017-05-27 09:27 | SIPON ---
Date/Time of Note Date/Time of Note DATE: 05/27/17 TIME: 09:26 Operative Report Preoperative Diagnosis cataract os Postoperative Diagnosis same Operation/Procedure Performed cataract implant surgery Surgeon see signature line assistant project engineer none Anesthesia: MAC Estimated blood loss: none Transfusion Required none Specimen none Grafts/Implants posterior chamber lens implant Complications none GIACOMO BYRD MD May 27, 2017 09:27
--- NOTE | 2017-05-27 09:28 | OPR ---
DATE OF OPERATION: 05/27/2017 PREOPERATIVE DIAGNOSIS: Cataract, left eye. POSTOPERATIVE DIAGNOSIS: Cataract, left eye. OPERATION PERFORMED: Cataract extraction with lens implant, left eye. SURGEON: Giacomo Patton MD ANESTHESIA: Local stand by. ANESTHESIOLOGIST: Dr. Khan OPERATION: Phacoemulsification with posterior chamber intraocular lens implant, left eye. PROCEDURE: The patient was brought to the operating room and placed on the table with an IV in plac e and the patient attached to an hand i tube bender. Oxygen was given via face mask. After some intravenous sedation was administered, local anesthesia was given using Xylocaine 2% with epinephrine, mixed with Marcaine 0.5%. This was given in a lid block and retrobulbar injection. The patient was then prepped and draped in the usual sterile manner. A wire lid speculum was inserted between the lids of the left eye. A Superblade was used to enter th e anterior chamber at the corneoscleral limbus at the 10:30 o'clock position. A separate incision wa s made using a 3.0-mm keratome which entered the corneoscleral junction at the 12 o'clock position. Through this 3-mm opening, an irrigating cystotome was introduced into the anterior chamber. The karrie mber was filled with Provisc and an anterior capsulotomy was performed. Balanced salt solution was t hen used for hydrodissection of the lens. A phacoemulsification handpiece was then brought into the field and introduced into the anterior chamber. The lens nucleus was emulsified using a deep groove and cracking the nucleus into quadrants. Following this, each quadrant was aspirated and emulsified at the pupillary margin. After this was completed, the irrigation/aspiration handpiece was brought to the field, introduced i nto the posterior chamber, and the lens cortical material was removed. When this was completed, sampson tional Viscoat was injected into the anterior and posterior chambers. The 3-mm opening had its internal lips enlarged, and then the posterior chamber intraocular lens sourav suring 22.0 diopters ([employer], model LI61AL) was then injected into the posterio r chamber using the lens injector system. After the leading haptic was introduced into the capsular bag and the lens optic was present in the center of the eye, the injector was removed and the traili ng haptic was grasped with non-toothed forceps and introduced into the capsular fold superiorly. A S inskey hook was then used to rotate the intraocular lens so that the lips were oriented in the horiz ontal meridian. One 10-0 nylon suture was placed across the wound. Prior to tying, the irrigation/aspiration handpiece was reintroduced into the anterior chamber to re move the Provisc. Miochol was instilled to constrict the pupil, and then the 10-0 nylon suture was t ied. The ends were cut short and then the knot was buried. Then, 0.5 mL of dexamethasone and 0.5 mL of Ancef were injected into the sub-Tenon space in the infe rior fornix. Ciloxan drops were then placed on the surface of the eye. The speculum was removed and a patch was applied. The patient then left the operating room in satisfactory condition. Dictated By: GIACOMO MONTES/NAY Conf#: [id number] DID#: [id number]
== END 2017-05-27 11:10 | disposition home or self-care (01) ==
LOC: SDS 06:20
PROVIDERS: ATTEND Ophthalmology
DX: H25.12 Age-related nuclear cataract, left eye (principal); I10 Essential (primary) hypertension; I50.9 Heart failure, unspecified; E03.9 Hypothyroidism, unspecified
CPT/HCPCS: 66984; J0171; J0690; J1100; J1580; V2632; Z7512; Z7610

== ENCOUNTER → 2017-07-10 | Outpatient (CLI) | END | disposition home or self-care (01) ==